=== PATIENT | male | born 1970 | race African-American/Black ===

== ENCOUNTER 2016-10-14 20:14 | Inpatient (IN) | payer MEDICAID ==
[~2016-10-14] VITALS: Ht 182.9 cm; Wt 85.7 kg
[2016-10-14 20:15] VITALS: BP_SYST 117
[2016-10-14] MEDS ORDERED: NS 1000 ML BAG IV ONE (20:45)
[2016-10-14] MEDS ORDERED: NACL 0.9% 1,000 ML IV ONE (20:45)
[2016-10-14 21:26] LABS: BASOPHILS # (AUTO) 0.4 K/uL (0.0-0.2); BASOPHILS % (AUTO) 1.6 % (0.0-2.0); EOSINOPHILS # (AUTO) 0.3 K/uL (0.0-0.4); EOSINOPHILS % (AUTO) 1.3 % (0.0-4.0); HEMATOCRIT 34.9 % (36-54); HEMOGLOBIN 10.9 g/dL (14.0-18.0); LYMPHOCYTES # (AUTO) 2.6 K/uL (1.0-5.5); LYMPHOCYTES % (AUTO) 11.5 % (20.5-51.5); MEAN CORPUSCULAR HEMOGLOBIN 26 pg (27-31); MEAN CORPUSCULAR HGB CONC 31 % (32-36); MEAN CORPUSCULAR VOLUME 85 fL (79.0-98.0); MONOCYTES # (AUTO) 0.7 K/uL (0.0-1.0); MONOCYTES % (AUTO) 3.1 % (1.7-9.3); NEUTROPHILS # (AUTO) 18.2 K/uL (1.8-7.7); NEUTROPHILS % (AUTO) 82.5 % (40.0-70.0); PLATELET COUNT (AUTO) 320 K/uL (130-430); RED BLOOD CELL COUNT(AUTO) 4.14 MIL/uL (4.2-6.2); RED CELL DISTRIBUTION WIDTH 15.3 % (9.0-15.0); WHITE BLOOD COUNT (AUTO) 22.2 K/uL (4.8-10.8)
[2016-10-14] MEDS ORDERED: SENN-153 PO (21:29)
[2016-10-14] MEDS ORDERED: MULT-1184 PO (21:29)
[2016-10-14] MEDS ORDERED: ASCO500T20 PO (21:29)
[2016-10-14] MEDS ORDERED: HYDR-1189 PO ×2 (21:29)
[2016-10-14] MEDS ORDERED: ASCO500W7 PO (21:29)
[2016-10-14] MEDS ORDERED: DULR10 RC (21:29)
[2016-10-14] MEDS ORDERED: LEVE500T13 PO (21:29)
[2016-10-14] MEDS ORDERED: MELA3TAB37 PO (21:29)
[2016-10-14] MEDS ORDERED: ACET325T53 PO ×2 (21:29)
[2016-10-14] MEDS ORDERED: LIP20 PO (21:29)
[2016-10-14] MEDS ORDERED: OXYC10TA71 PO (21:29)
[2016-10-14] MEDS ORDERED: MORPHINE 4 MG/ML INJ. SYRINGE IVP ONE (21:30)
[2016-10-14 21:37] LABS: CALCIUM 9.4 mg/dL (8.4-11.0); CREATININE 0.63 mg/dL (0.55-1.30); POTASSIUM 3.3 mmol/L (3.5-5.1)
[2016-10-14 21:42] LABS: ALBUMIN 2.5 g/dL (3.4-4.8); TOTAL BILIRUBIN 0.6 mg/dL (0.0-1.0)
[2016-10-14 22:25] LABS: BILIRUBIN,URINE NEGATIVE (NEGATIVE); BLOOD, URINE 3+ (NEGATIVE); CLARITY/URINE SL CLOUDY (CLEAR); COLOR,URINE YELLOW (YELLOW); GLUCOSE,URINE NEGATIVE (NEGATIVE); KETONES,URINE NEGATIVE (NEGATIVE); LEUKOCYTE ESTERASE ,URINE 3+ (NEGATIVE); NITRITE, URINE NEGATIVE (NEGATIVE); PROTEIN URINE NEGATIVE (NEGATIVE); UROBILINOGEN,URINE 0.2 (0.2-1.0)
[2016-10-14 22:39] LABS: BACTERIA,URINE MODERATE /HPF (None Seen); MUCUS,URINE None Seen /LPF (None Seen); WBC,URINE >100 /HPF (0-3)
[2016-10-14] MEDS ORDERED: cefTRIAXone 1 GM in D5W 50 ML IV ONE (23:45)
[2016-10-15] MEDS ORDERED: cefTRIAXone 1 GM IVPB PREMIX 50 ML IV ONE (00:09)
[2016-10-15 00:38] VITALS: BP_SYST 138
[2016-10-15] MEDS ORDERED: VANCOMYCIN HCL 1,500 MG in NS 250 ML IV ONE (01:00)
[2016-10-15] MEDS ORDERED: BISACODYL 10 MG/SUPPOSITORY RC PRN (01:15)
[2016-10-15] MEDS ORDERED: MORPHINE 2 MG/ML INJ. SYRINGE IVP PRN ×2 (01:15)
[2016-10-15] MEDS ORDERED: ONDANSETRON HCL 4 MG/2 ML VIAL IVP PRN (01:15)
[2016-10-15] MEDS ORDERED: ZOLPIDEM TARTRATE 5 MG TABLET PO PRN (01:15)
[2016-10-15] MEDS ORDERED: ACETAMINOPHEN 325 MG TABLET PO PRN ×2 (01:15→10:45)
[2016-10-15] MEDS ORDERED: DOCUSATE SODIUM 100 MG CAPSULE PO PRN (01:15)
[2016-10-15] MEDS ORDERED: LORazepam 2 MG/ML VIAL IVP PRN (01:15)
[2016-10-15] MEDS: MORPHINE 2 MG/ML INJ. SYRINGE IVP PRN ×2 (01:25→08:22)
[2016-10-15] MEDS ORDERED: VANCOMYCIN HCL 1000 MG/VIAL IV ONE (01:40)
[2016-10-15] MEDS ORDERED: VANCOMYCIN HCL 500 MG/VIAL IV ONE (01:41)
[2016-10-15 04:11] VITALS: BP_SYST 157
[2016-10-15] MEDS: NACL 0.9% 1,000 ML IV SCH ×3 (05:39→22:04)
[2016-10-15] MEDS: oxyCODONE HCL 10 MG TAB.ER.12H PO SCH ×3 (05:41→22:00)
[2016-10-15 08:00] VITALS: BP_SYST 139
[2016-10-15 08:22] LABS: CALCIUM 8.4 mg/dL (8.4-11.0); CREATININE 0.48 mg/dL (0.55-1.30); POTASSIUM 3.2 mmol/L (3.5-5.1)
[2016-10-15] MEDS: levETIRAcetam 500 MG TABLET PO SCH ×2 (08:22→21:15)
[2016-10-15] MEDS: POTASSIUM CHLORIDE 10 MEQ TAB.PRT.SR PO PRN (08:22)
[2016-10-15] MEDS: HEPARIN SODIUM,PORCINE 5000 UNITS/ML VIAL SUBCUT SCH ×2 (08:23→21:19)
[2016-10-15 08:24] LABS: BASOPHILS % (AUTO) 0.2 % (0.0-2.0); EOSINOPHILS # (AUTO) 0.3 K/uL (0.0-0.4); EOSINOPHILS % (AUTO) 2.2 % (0.0-4.0); HEMATOCRIT 31.6 % (36-54); HEMOGLOBIN 9.9 g/dL (14.0-18.0); LYMPHOCYTES # (AUTO) 1.9 K/uL (1.0-5.5); LYMPHOCYTES % (AUTO) 15.7 % (20.5-51.5); MEAN CORPUSCULAR HEMOGLOBIN 27 pg (27-31); MEAN CORPUSCULAR HGB CONC 31 % (32-36); MEAN CORPUSCULAR VOLUME 85 fL (79.0-98.0); MONOCYTES # (AUTO) 0.6 K/uL (0.0-1.0); NEUTROPHILS # (AUTO) 9.2 K/uL (1.8-7.7); NEUTROPHILS % (AUTO) 76.9 % (40.0-70.0); PLATELET COUNT (AUTO) 303 K/uL (130-430); RED BLOOD CELL COUNT(AUTO) 3.72 MIL/uL (4.2-6.2); RED CELL DISTRIBUTION WIDTH 15.4 % (9.0-15.0)
[2016-10-15] MEDS ORDERED: NACL 0.9% 1,000 ML IV SCH (10:38)
[2016-10-15 11:23] LABS: FREE T4 (FREE THYROXINE) 1.5 ng/dl (0.8-1.5)
[2016-10-15 11:30] LABS: PHOSPHORUS 3.2 mg/dL (2.7-4.5); THYROID STIMULATING HORMONE 0.55 uIu/mL (0.34-4.82)
[2016-10-15] MEDS: cefTRIAXone 1 GM in D5W 50 ML IV SCH (12:06)
[2016-10-15 12:22] VITALS: BP_SYST 110
[2016-10-15] MEDS: HYDROmorphone 1 MG INJ. 1 MG/ML AMPUL IVP PRN ×2 (13:46→20:58)
[2016-10-15] MEDS: VANCOMYCIN HCL 1,250 MG in NS 250 ML IV SCH (14:31)
[2016-10-15 16:29] VITALS: BP_SYST 116
[2016-10-15] MEDS: MAGNESIUM SULFATE 50 ML IV PRN (17:13)
[2016-10-15 20:00] VITALS: BP_SYST 114
[2016-10-15] MEDS ORDERED: NON-FORMULARY MEDICATION (Melatonin 2 TAB) PO SCH (21:00)
[2016-10-15] MEDS: DOCUSATE SODIUM 100 MG CAPSULE PO SCH (21:14)
[2016-10-15] MEDS: ATORVASTATIN 20 MG TABLET PO SCH (21:15)
[2016-10-15] MEDS: ASCORBIC ACID 500 MG TABLET PO SCH (21:16)
[2016-10-16 00:32] VITALS: BP_SYST 116
[2016-10-16 01:05] VITALS: BP_SYST 116
[2016-10-16] MEDS: HYDROmorphone 1 MG INJ. 1 MG/ML AMPUL IVP PRN ×5 (01:10→19:38)
[2016-10-16] MEDS: VANCOMYCIN HCL 1,250 MG in NS 250 ML IV SCH ×2 (02:00→15:30)
[2016-10-16] MEDS ORDERED: VANCOMYCIN HCL 1000 MG/VIAL IV ONE (02:19)
[2016-10-16] MEDS ORDERED: VANCOMYCIN HCL 500 MG/VIAL IV ONE (02:19)
[2016-10-16] MEDS: oxyCODONE HCL 10 MG TAB.ER.12H PO SCH ×3 (05:49→21:55)
[2016-10-16 08:06] VITALS: BP_SYST 111
[2016-10-16 08:06] LABS: CREATININE 0.57 mg/dL (0.55-1.30); POTASSIUM 3.6 mmol/L (3.5-5.1)
[2016-10-16 08:11] LABS: T4 (THYROXINE) 7.3 ug/dL (4.5-12.0)
[2016-10-16] MEDS: levETIRAcetam 500 MG TABLET PO SCH ×2 (09:08→21:55)
[2016-10-16] MEDS: DOCUSATE SODIUM 100 MG CAPSULE PO SCH ×2 (09:08→21:55)
[2016-10-16] MEDS: ASCORBIC ACID 500 MG TABLET PO SCH ×2 (09:08→21:55)
[2016-10-16] MEDS: MULTIVITS,CA,MINERALS/IRON/FA 1 TABLET PO SCH (09:09)
[2016-10-16] MEDS: HEPARIN SODIUM,PORCINE 5000 UNITS/ML VIAL SUBCUT SCH ×3 (09:10→21:58)
[2016-10-16 09:12] LABS: HEMOGLOBIN A1C 5.4 % (4.8-5.6)
[2016-10-16] MEDS: NACL 0.9% 1,000 ML IV SCH (10:41)
[2016-10-16 11:25] VITALS: BP_SYST 120
[2016-10-16] MEDS: cefTRIAXone 1 GM in D5W 50 ML IV SCH (12:06)
[2016-10-16 12:25] LABS: BASOPHILS % (AUTO) 0.2 % (0.0-2.0); EOSINOPHILS # (AUTO) 0.3 K/uL (0.0-0.4); EOSINOPHILS % (AUTO) 4.2 % (0.0-4.0); HEMATOCRIT 30.9 % (36-54); HEMOGLOBIN 9.4 g/dL (14.0-18.0); LYMPHOCYTES # (AUTO) 2.1 K/uL (1.0-5.5); LYMPHOCYTES % (AUTO) 26.3 % (20.5-51.5); MEAN CORPUSCULAR HEMOGLOBIN 26 pg (27-31); MEAN CORPUSCULAR HGB CONC 31 % (32-36); MEAN CORPUSCULAR VOLUME 85 fL (79.0-98.0); MONOCYTES # (AUTO) 0.7 K/uL (0.0-1.0); MONOCYTES % (AUTO) 8.7 % (1.7-9.3); NEUTROPHILS # (AUTO) 4.9 K/uL (1.8-7.7); NEUTROPHILS % (AUTO) 60.6 % (40.0-70.0); PLATELET COUNT (AUTO) 392 K/uL (130-430); RED BLOOD CELL COUNT(AUTO) 3.65 MIL/uL (4.2-6.2); RED CELL DISTRIBUTION WIDTH 15.1 % (9.0-15.0)
[2016-10-16 15:58] VITALS: BP_SYST 103
[2016-10-16 20:45] VITALS: BP_SYST 103
[2016-10-16] MEDS: ATORVASTATIN 20 MG TABLET PO SCH (21:55)
[2016-10-16] MEDS: MUPIROCIN 2% TOPICAL OINTMENT 22 GM TP SCH (22:05)
[2016-10-17 00:30] VITALS: BP_SYST 131
[2016-10-17] MEDS: HYDROmorphone 1 MG INJ. 1 MG/ML AMPUL IVP PRN ×5 (00:36→20:43)
[2016-10-17] MEDS: NACL 0.9% 1,000 ML IV SCH ×2 (00:37→12:01)
[2016-10-17] MEDS: VANCOMYCIN HCL 1,250 MG in NS 250 ML IV SCH ×2 (02:07→14:47)
[2016-10-17 04:44] VITALS: BP_SYST 128
[2016-10-17] MEDS: oxyCODONE HCL 10 MG TAB.ER.12H PO SCH ×3 (06:19→21:27)
[2016-10-17 07:43] LABS: BASOPHILS % (AUTO) 0.4 % (0.0-2.0); EOSINOPHILS # (AUTO) 0.4 K/uL (0.0-0.4); EOSINOPHILS % (AUTO) 5.2 % (0.0-4.0); HEMATOCRIT 30.2 % (36-54); HEMOGLOBIN 9.7 g/dL (14.0-18.0); LYMPHOCYTES # (AUTO) 2.4 K/uL (1.0-5.5); LYMPHOCYTES % (AUTO) 31.9 % (20.5-51.5); MEAN CORPUSCULAR HEMOGLOBIN 27 pg (27-31); MEAN CORPUSCULAR HGB CONC 32 % (32-36); MEAN CORPUSCULAR VOLUME 85 fL (79.0-98.0); MONOCYTES # (AUTO) 0.6 K/uL (0.0-1.0); MONOCYTES % (AUTO) 7.5 % (1.7-9.3); NEUTROPHILS # (AUTO) 4.2 K/uL (1.8-7.7); PLATELET COUNT (AUTO) 397 K/uL (130-430); RED BLOOD CELL COUNT(AUTO) 3.55 MIL/uL (4.2-6.2); WHITE BLOOD COUNT (AUTO) 7.6 K/uL (4.8-10.8)
[2016-10-17 08:01] LABS: CALCIUM 8.2 mg/dL (8.4-11.0); CREATININE 0.55 mg/dL (0.55-1.30); POTASSIUM 3.3 mmol/L (3.5-5.1)
[2016-10-17 08:55] VITALS: BP_SYST 146
[2016-10-17] MEDS: POTASSIUM CHLORIDE 10 MEQ TAB.PRT.SR PO PRN (09:13)
[2016-10-17] MEDS: ASCORBIC ACID 500 MG TABLET PO SCH ×2 (09:14→21:24)
[2016-10-17] MEDS: DOCUSATE SODIUM 100 MG CAPSULE PO SCH ×2 (09:14→21:24)
[2016-10-17] MEDS: MULTIVITS,CA,MINERALS/IRON/FA 1 TABLET PO SCH (09:14)
[2016-10-17] MEDS: levETIRAcetam 500 MG TABLET PO SCH ×2 (09:14→21:24)
[2016-10-17] MEDS: MUPIROCIN 2% TOPICAL OINTMENT 22 GM TP SCH ×2 (09:15→21:00)
[2016-10-17] MEDS: HEPARIN SODIUM,PORCINE 5000 UNITS/ML VIAL SUBCUT SCH ×2 (09:16→21:26)
[2016-10-17] MEDS: cefTRIAXone 1 GM in D5W 50 ML IV SCH (12:01)
[2016-10-17 12:58] VITALS: BP_SYST 121
[2016-10-17] MEDS ORDERED: SODIUM CL 3% FOR INHALATION 15 ML VIAL.NEB INH ONE (14:45)
[2016-10-17 17:00] VITALS: BP_SYST 96
[2016-10-17 19:30] VITALS: BP_SYST 140
[2016-10-17] MEDS: ATORVASTATIN 20 MG TABLET PO SCH (21:24)
[2016-10-18 00:35] VITALS: BP_SYST 130
[2016-10-18] MEDS: HYDROmorphone 1 MG INJ. 1 MG/ML AMPUL IVP PRN ×6 (01:05→22:03)
[2016-10-18] MEDS: VANCOMYCIN HCL 1,250 MG in NS 250 ML IV SCH ×3 (02:30→22:04)
[2016-10-18 04:01] VITALS: BP_SYST 124
[2016-10-18] MEDS: oxyCODONE HCL 10 MG TAB.ER.12H PO SCH ×3 (05:55→22:04)
[2016-10-18] MEDS: NACL 0.9% 1,000 ML IV SCH ×2 (06:28→18:40)
[2016-10-18 08:00] VITALS: BP_SYST 87
[2016-10-18 08:15] LABS: BASOPHILS % (AUTO) 0.3 % (0.0-2.0); EOSINOPHILS # (AUTO) 0.3 K/uL (0.0-0.4); EOSINOPHILS % (AUTO) 4.5 % (0.0-4.0); HEMATOCRIT 29.7 % (36-54); HEMOGLOBIN 9.5 g/dL (14.0-18.0); LYMPHOCYTES # (AUTO) 2.3 K/uL (1.0-5.5); LYMPHOCYTES % (AUTO) 30.6 % (20.5-51.5); MEAN CORPUSCULAR HEMOGLOBIN 27 pg (27-31); MEAN CORPUSCULAR HGB CONC 32 % (32-36); MEAN CORPUSCULAR VOLUME 85 fL (79.0-98.0); MONOCYTES # (AUTO) 0.5 K/uL (0.0-1.0); MONOCYTES % (AUTO) 6.6 % (1.7-9.3); NEUTROPHILS # (AUTO) 4.4 K/uL (1.8-7.7); PLATELET COUNT (AUTO) 405 K/uL (130-430); WHITE BLOOD COUNT (AUTO) 7.5 K/uL (4.8-10.8)
[2016-10-18 08:29] LABS: CALCIUM 8.3 mg/dL (8.4-11.0); CREATININE 0.48 mg/dL (0.55-1.30); POTASSIUM 3.5 mmol/L (3.5-5.1)
[2016-10-18] MEDS: MUPIROCIN 2% TOPICAL OINTMENT 22 GM TP SCH ×2 (09:00→21:00)
[2016-10-18] MEDS: MENTHOL/ZINC OXIDE 113 GM OINT. TP SCH ×2 (09:00→20:26)
[2016-10-18] MEDS: BALSAM PERU/CASTOR OIL 60 GM OINT...G. TP SCH ×2 (09:00→20:24)
[2016-10-18] MEDS: MULTIVITS,CA,MINERALS/IRON/FA 1 TABLET PO SCH (09:06)
[2016-10-18] MEDS: levETIRAcetam 500 MG TABLET PO SCH ×2 (09:06→20:24)
[2016-10-18] MEDS: ASCORBIC ACID 500 MG TABLET PO SCH ×2 (09:06→20:24)
[2016-10-18] MEDS: POTASSIUM CHLORIDE 10 MEQ TAB.PRT.SR PO PRN (09:06)
[2016-10-18] MEDS: DOCUSATE SODIUM 100 MG CAPSULE PO SCH ×2 (09:06→20:24)
[2016-10-18] MEDS: HEPARIN SODIUM,PORCINE 5000 UNITS/ML VIAL SUBCUT SCH ×2 (09:08→20:27)
[2016-10-18 12:37] VITALS: BP_SYST 112
[2016-10-18] MEDS: cefTRIAXone 1 GM in D5W 50 ML IV SCH (12:46)
[2016-10-18 16:00] VITALS: BP_SYST 124
[2016-10-18 20:10] VITALS: BP_SYST 138
[2016-10-18] MEDS: ATORVASTATIN 20 MG TABLET PO SCH (20:24)
[2016-10-19] MEDS: NACL 0.9% 1,000 ML IV SCH ×2 (01:04→09:30)
[2016-10-19] MEDS: HYDROmorphone 1 MG INJ. 1 MG/ML AMPUL IVP PRN ×5 (02:16→20:18)
[2016-10-19 04:00] VITALS: BP_SYST 113
[2016-10-19] MEDS: oxyCODONE HCL 10 MG TAB.ER.12H PO SCH ×3 (05:07→21:22)
[2016-10-19] MEDS: VANCOMYCIN HCL 1,250 MG in NS 250 ML IV SCH ×2 (05:08→14:28)
[2016-10-19 07:08] LABS: BASOPHILS % (AUTO) 0.6 % (0.0-2.0); EOSINOPHILS # (AUTO) 0.3 K/uL (0.0-0.4); EOSINOPHILS % (AUTO) 4.5 % (0.0-4.0); HEMATOCRIT 30.3 % (36-54); HEMOGLOBIN 9.9 g/dL (14.0-18.0); LYMPHOCYTES # (AUTO) 2.5 K/uL (1.0-5.5); LYMPHOCYTES % (AUTO) 34.4 % (20.5-51.5); MEAN CORPUSCULAR HEMOGLOBIN 28 pg (27-31); MEAN CORPUSCULAR HGB CONC 33 % (32-36); MEAN CORPUSCULAR VOLUME 85 fL (79.0-98.0); MONOCYTES # (AUTO) 0.5 K/uL (0.0-1.0); NEUTROPHILS # (AUTO) 3.9 K/uL (1.8-7.7); NEUTROPHILS % (AUTO) 53.5 % (40.0-70.0); PLATELET COUNT (AUTO) 421 K/uL (130-430); RED BLOOD CELL COUNT(AUTO) 3.56 MIL/uL (4.2-6.2); RED CELL DISTRIBUTION WIDTH 15.4 % (9.0-15.0); WHITE BLOOD COUNT (AUTO) 7.2 K/uL (4.8-10.8)
[2016-10-19 08:00] VITALS: BP_SYST 114
[2016-10-19 08:19] LABS: CALCIUM 8.1 mg/dL (8.4-11.0); CREATININE 0.65 mg/dL (0.55-1.30); PHOSPHORUS 3.1 mg/dL (2.7-4.5); POTASSIUM 3.8 mmol/L (3.5-5.1)
[2016-10-19] MEDS: MULTIVITS,CA,MINERALS/IRON/FA 1 TABLET PO SCH (09:21)
[2016-10-19] MEDS: DOCUSATE SODIUM 100 MG CAPSULE PO SCH ×2 (09:21→21:19)
[2016-10-19] MEDS: ASCORBIC ACID 500 MG TABLET PO SCH ×2 (09:21→21:19)
[2016-10-19] MEDS: levETIRAcetam 500 MG TABLET PO SCH ×2 (09:21→21:19)
[2016-10-19] MEDS: HEPARIN SODIUM,PORCINE 5000 UNITS/ML VIAL SUBCUT SCH ×2 (09:22→21:24)
[2016-10-19] MEDS: BALSAM PERU/CASTOR OIL 60 GM OINT...G. TP SCH ×2 (09:25→21:37)
[2016-10-19] MEDS: MENTHOL/ZINC OXIDE 113 GM OINT. TP SCH ×2 (09:26→21:37)
[2016-10-19] MEDS: MUPIROCIN 2% TOPICAL OINTMENT 22 GM TP SCH ×2 (11:05→21:24)
[2016-10-19] MEDS: cefTRIAXone 1 GM in D5W 50 ML IV SCH (11:40)
[2016-10-19 12:33] VITALS: BP_SYST 137
[2016-10-19 16:08] VITALS: BP_SYST 116
[2016-10-19 20:00] VITALS: BP_SYST 125
[2016-10-19] MEDS: ATORVASTATIN 20 MG TABLET PO SCH (21:19)
[2016-10-19] MEDS: CEFEPIME 1 GM in D5W 50 ML IV SCH (21:25)
[2016-10-19] MEDS ORDERED: CEFEPIME 1 GM/VIAL (MAXIPIME) ONE (21:27)
[2016-10-20 00:05] VITALS: BP_SYST 111
[2016-10-20] MEDS: HYDROmorphone 1 MG INJ. 1 MG/ML AMPUL IVP PRN ×6 (00:41→23:09)
[2016-10-20 03:57] VITALS: BP_SYST 107
[2016-10-20] MEDS: NACL 0.9% 1,000 ML IV SCH ×2 (04:40→14:34)
[2016-10-20] MEDS: oxyCODONE HCL 10 MG TAB.ER.12H PO SCH ×3 (06:08→22:04)
[2016-10-20 06:45] LABS: BASOPHILS % (AUTO) 0.3 % (0.0-2.0); EOSINOPHILS # (AUTO) 0.3 K/uL (0.0-0.4); HEMATOCRIT 28.8 % (36-54); HEMOGLOBIN 9.4 g/dL (14.0-18.0); LYMPHOCYTES # (AUTO) 2.3 K/uL (1.0-5.5); LYMPHOCYTES % (AUTO) 38.3 % (20.5-51.5); MEAN CORPUSCULAR HEMOGLOBIN 27 pg (27-31); MEAN CORPUSCULAR HGB CONC 33 % (32-36); MEAN CORPUSCULAR VOLUME 84 fL (79.0-98.0); MONOCYTES # (AUTO) 0.5 K/uL (0.0-1.0); MONOCYTES % (AUTO) 8.8 % (1.7-9.3); NEUTROPHILS # (AUTO) 2.9 K/uL (1.8-7.7); NEUTROPHILS % (AUTO) 47.6 % (40.0-70.0); PLATELET COUNT (AUTO) 435 K/uL (130-430); RED BLOOD CELL COUNT(AUTO) 3.44 MIL/uL (4.2-6.2); RED CELL DISTRIBUTION WIDTH 15.4 % (9.0-15.0)
[2016-10-20 07:05] LABS: CALCIUM 8.1 mg/dL (8.4-11.0); CREATININE 0.55 mg/dL (0.55-1.30); POTASSIUM 3.6 mmol/L (3.5-5.1)
[2016-10-20 08:00] VITALS: BP_SYST 90
[2016-10-20] MEDS: MENTHOL/ZINC OXIDE 113 GM OINT. TP SCH ×2 (09:00→22:06)
[2016-10-20] MEDS: MUPIROCIN 2% TOPICAL OINTMENT 22 GM TP SCH ×2 (09:00→22:04)
[2016-10-20] MEDS: BALSAM PERU/CASTOR OIL 60 GM OINT...G. TP SCH ×2 (09:00→22:06)
[2016-10-20] MEDS: MAGNESIUM SULFATE 50 ML IV PRN (09:19)
[2016-10-20] MEDS: CEFEPIME 1 GM in D5W 50 ML IV SCH ×2 (09:19→22:16)
[2016-10-20] MEDS: MULTIVITS,CA,MINERALS/IRON/FA 1 TABLET PO SCH (09:20)
[2016-10-20] MEDS: DOCUSATE SODIUM 100 MG CAPSULE PO SCH ×2 (09:20→22:04)
[2016-10-20] MEDS: ASCORBIC ACID 500 MG TABLET PO SCH ×2 (09:20→22:04)
[2016-10-20] MEDS: levETIRAcetam 500 MG TABLET PO SCH ×2 (09:20→22:04)
[2016-10-20] MEDS: HEPARIN SODIUM,PORCINE 5000 UNITS/ML VIAL SUBCUT SCH ×2 (09:26→22:05)
[2016-10-20 12:30] VITALS: BP_SYST 113
[2016-10-20 17:12] VITALS: BP_SYST 138
[2016-10-20 19:45] VITALS: BP_SYST 112
[2016-10-20] MEDS: ATORVASTATIN 20 MG TABLET PO SCH (22:04)
[2016-10-21 00:39] VITALS: BP_SYST 115
[2016-10-21] MEDS: HYDROmorphone 1 MG INJ. 1 MG/ML AMPUL IVP PRN ×3 (03:29→12:48)
[2016-10-21 03:39] VITALS: BP_SYST 145
[2016-10-21] MEDS: oxyCODONE HCL 10 MG TAB.ER.12H PO SCH ×2 (05:27→12:47)
[2016-10-21] MEDS: NACL 0.9% 1,000 ML IV SCH (05:27)
[2016-10-21 08:00] VITALS: BP_SYST 187
[2016-10-21] MEDS: CEFEPIME 1 GM in D5W 50 ML IV SCH (08:08)
[2016-10-21] MEDS: DOCUSATE SODIUM 100 MG CAPSULE PO SCH (08:09)
[2016-10-21] MEDS: MULTIVITS,CA,MINERALS/IRON/FA 1 TABLET PO SCH (08:09)
[2016-10-21] MEDS: ASCORBIC ACID 500 MG TABLET PO SCH (08:09)
[2016-10-21] MEDS: levETIRAcetam 500 MG TABLET PO SCH (08:09)
[2016-10-21] MEDS: HEPARIN SODIUM,PORCINE 5000 UNITS/ML VIAL SUBCUT SCH (08:17)
[2016-10-21] MEDS: BALSAM PERU/CASTOR OIL 60 GM OINT...G. TP SCH (09:09)
[2016-10-21] MEDS: MENTHOL/ZINC OXIDE 113 GM OINT. TP SCH (09:09)
[2016-10-21] MEDS: MUPIROCIN 2% TOPICAL OINTMENT 22 GM TP SCH (09:09)
[2016-10-21 11:23] VITALS: BP_SYST 147
[2016-10-21 12:42] VITALS: BP_SYST 114
== END 2016-10-21 12:48 | DRG 720 ==
LOC: SED 20:14 → SMU 23:49 → STU 10-16 20:16 → SMU 10-20 11:36
PROVIDERS: ADMIT General Practice; ATTEND General Practice
PROC: 0BBC3ZX Excision of Right Upper Lung Lobe, Percutaneous Approach, Diagnostic (ICD-10-PCS; principal; 2016-10-19)
DX: A41.9 Sepsis, unspecified organism (principal); J69.0 Pneumonitis due to inhalation of food and vomit; E43 Unspecified severe protein-calorie malnutrition; G82.50 Quadriplegia, unspecified; L89.154 Pressure ulcer of sacral region, stage 4; N39.0 Urinary tract infection, site not specified; B96.1 Klebsiella pneumoniae [K. pneumoniae] as the cause of diseases classified elsewhere; Z16.24 Resistance to multiple antibiotics; G89.4 Chronic pain syndrome; M62.81 Muscle weakness (generalized); B96.5 Pseudomonas (aeruginosa) (mallei) (pseudomallei) as the cause of diseases classified elsewhere; E87.6 Hypokalemia; B95.61 Methicillin susceptible Staphylococcus aureus infection as the cause of diseases classified elsewhere; M46.28 Osteomyelitis of vertebra, sacral and sacrococcygeal region; R91.8 Other nonspecific abnormal finding of lung field; F17.210 Nicotine dependence, cigarettes, uncomplicated; Z87.440 Personal history of urinary (tract) infections; Z91.19 Patient's noncompliance with other medical treatment and regimen; Z68.25 Body mass index [BMI] 25.0-25.9, adult; Z91.048 Other nonmedicinal substance allergy status; Z79.899 Other long term (current) drug therapy
CPT/HCPCS: 36415; 71010; 71250-TC; 77012; 80048; 80053; 80061; 80202-TC; 81000-TC; 82150-TC; 83036; 83605; 83690-TC; 83735-TC; 83880; 84100-TC; 84436; 84439; 84443-TC; 84479; 85025; 85610-TC; 86710; 87040-TC; 87070-TC; 87081; 87086; 87186-TC; 88305; 96361; 96365; 96375; 97110-GP; 99285; J0692; J0696; J1170; J1644; J2270; J3370; J3475; J7030; J7050; J7060